=== PATIENT | male | born 1990 | race Caucasian/White ===

== ENCOUNTER 2023-03-18 10:00 | Emergency (ER) | payer BC ==
[~2023-03-18] VITALS: Ht 208.3 cm; Wt 74.8 kg
[2023-03-18 10:13] VITALS: BP 127/101
[2023-03-18] MEDS ORDERED: CYCL10 PO (11:16)
== END 2023-03-18 11:25 | disposition home or self-care (01) ==
LOC: ER 10:00
DX: M54.42 Lumbago with sciatica, left side (principal)
CPT/HCPCS: 99283